=== PATIENT | female | born 1935 | race Caucasian/White ===

== ENCOUNTER → 2016-07-08 | Outpatient (CLI) | payer MEDICARE ==
[2016-07-08 10:17] LABS: ALT 45 U/L (9-52); AST 27 U/L (14-36); Alkaline Phosphatase 94 U/L (38-126); Anion Gap 10 mmol/L; Blood Urea Nitrogen 17 mg/dL (7-17); Calcium 9.8 mg/dL (8.4-10.2); Carbon Dioxide 28 mmol/L (22-30); Chloride 105 mmol/L (98-107); Cholesterol 150 mg/dL (<200); Glucose 99 mg/dL (74-99); HDL Cholesterol 59 mg/dL (40-60); Non-African American GFR(MDRD) >60 (>60 ml/min/1.73 sqM); Potassium 4.9 mmol/L (3.5-5.1); Sodium 143 mmol/L (137-145); Total Bilirubin 0.7 mg/dL (0.2-1.3); Total Protein 7.4 g/dL (6.3-8.2); Triglycerides 75 mg/dL (<150)
== END | disposition home or self-care (01) ==
LOC: LABWHC1 09:20
PROVIDERS: ATTEND Internal Medicine Interventional Cardiology
DX: E78.2 Mixed hyperlipidemia (principal)
CPT/HCPCS: 36415; 80053; 80061

== ENCOUNTER → 2017-01-30 | Outpatient (CLI) | payer MEDICARE ==
[2017-01-30 08:56] LABS: ALT 39 U/L (9-52); AST 29 U/L (14-36); Cholesterol 143 mg/dL (<200); HDL Cholesterol 58 mg/dL (40-60)
== END | disposition home or self-care (01) ==
LOC: LABWHC1 08:14
PROVIDERS: ATTEND Internal Medicine Interventional Cardiology
DX: E78.2 Mixed hyperlipidemia (principal)
CPT/HCPCS: 36415; 80061; 84450; 84460